=== PATIENT | male | born 2000 | race Caucasian/White ===

== ENCOUNTER 2022-11-13 19:02 | Emergency (ER) | payer BC ==
[~2022-11-13] VITALS: Ht 177.8 cm; Wt 77.1 kg
[2022-11-13 19:30] VITALS: BP_SYST 146
--- NOTE | 2022-11-13 19:40 | NUR ---
BS IN TRIAGE 544. DR. GARNICA WITH PATIENT IN TRIAGE FOR MSE.
--- NOTE | 2022-11-13 19:47 | NUR ---
Patient to ER bed 01 to gown for evaluation. Side rails up. Report given to MARIO GALVEZ.
--- NOTE | 2022-11-13 19:58 | NUR ---
Patient complaining of high glucose was diagnosed with Diabetes yesterday at [facility]. Was prescribed Metformin 500 mg BID. Patient reports that he took morning medication and took glucose at 1900 with reading showing in the high 500s. Denies pain, chest pain, shortness of breath. Patient is accompanied by Girlfried. AOX4 ambulatory from home.
[2022-11-13] MEDS ORDERED: NACL 0.9% 2,000 ML IV ONE (20:00)
--- NOTE | 2022-11-13 20:06 | NUR ---
# 20 gauge angiocath placed to rac. Use of asceptic technique. Opsite placed over site. Blood return noted. Blood for lab drawn from site. Flushed with 10 cc of normal saline. No evidence of infiltration noted. Patient tolerated well.
[2022-11-13 20:20] LABS: BASOPHILS # (AUTO) 0.1 K/uL (0.0-0.2); BASOPHILS % (AUTO) 0.9 % (0.0-2.0); EOSINOPHILS # (AUTO) 0.1 K/uL (0.0-0.4); EOSINOPHILS % (AUTO) 1.9 % (0.0-4.0); HEMATOCRIT 45.5 % (36-54); HEMOGLOBIN 15.7 g/dL (14.0-18.0); LYMPHOCYTES # (AUTO) 1.9 K/uL (1.0-5.5); LYMPHOCYTES % (AUTO) 31.5 % (20.5-51.5); MEAN CORPUSCULAR HEMOGLOBIN 31 pg (27-31); MEAN CORPUSCULAR HGB CONC 35 % (32-36); MEAN CORPUSCULAR VOLUME 90 fL (79.0-98.0); MONOCYTES # (AUTO) 0.4 K/uL (0.0-1.0); MONOCYTES % (AUTO) 6.7 % (1.7-9.3); NEUTROPHILS # (AUTO) 3.6 K/uL (1.8-7.7); PLATELET COUNT (AUTO) 156 K/uL (130-430); RED BLOOD CELL COUNT(AUTO) 5.04 MIL/uL (4.2-6.2); RED CELL DISTRIBUTION WIDTH 12.2 % (9.0-15.0); WHITE BLOOD COUNT (AUTO) 6.1 K/uL (4.8-10.8)
[2022-11-13 20:32] LABS: BILIRUBIN,URINE NEGATIVE (NEGATIVE); BLOOD, URINE NEGATIVE (NEGATIVE); CLARITY/URINE CLEAR (CLEAR); GLUCOSE,URINE 3+ (NEGATIVE); KETONES,URINE 3+ (NEGATIVE); LEUKOCYTE ESTERASE ,URINE NEGATIVE (NEGATIVE); NITRITE, URINE NEGATIVE (NEGATIVE); PROTEIN URINE NEGATIVE (NEGATIVE); UROBILINOGEN,URINE 0.2 (0.2-1.0)
[2022-11-13 20:39] LABS: ALBUMIN 3.9 g/dL (3.4-4.8); CREATININE 1.11 mg/dL (0.55-1.30); TOTAL BILIRUBIN 0.4 mg/dL (0.0-1.0)
[2022-11-13 21:11] LABS: COLOR,URINE STRAW (YELLOW)
[2022-11-13] MEDS ORDERED: INSULIN REGULAR, HUMAN 10 UNITS/0.1 ML, 3 ML VIAL SUBCUT ONE (21:30)
[2022-11-13 22:01] LABS: BACTERIA,URINE FEW /HPF (None Seen); MUCUS,URINE None Seen /LPF (None Seen); RBC,URINE NONE SEEN /HPF (0-3); WBC,URINE 0-3 /HPF (0-3)
--- NOTE | 2022-11-13 22:20 | NUR ---
PT IS AA&OX4. AFEBRILE. NAD. DENIES PAIN. AFEBRILE. W/ FAMILY AT BEDSIDE. SAFE & HAZARD FREE ENVIRONMENT PROVIDED.
--- NOTE | 2022-11-13 22:29 | NUR ---
LATEST BLOOD GLUCOSE =308MG/DL
[2022-11-13] MEDS ORDERED: METF-381 PO (23:21)
[2022-11-13 23:32] VITALS: BP_SYST 153
--- NOTE | 2022-11-13 23:34 | NUR ---
Patient given written and verbal discharge instructions and verbalizes understanding. ER MD discussed with patient the results and treatment provided. Patient in stable condition. ID arm band removed. IV catheter removed intact and dressing applied, no active bleeding. Rx of METFORMIN given. Patient educated on pain management and to follow up with PMD. Pain Scale 0/10. Opportunity for questions provided and answered. Medication side effect fact sheet provided.
== END 2022-11-13 23:32 | disposition home or self-care (01) ==
LOC: SED 19:02
DX: E11.65 Type 2 diabetes mellitus with hyperglycemia (principal); R35.89 Other polyuria; R63.1 Polydipsia; Z79.899 Other long term (current) drug therapy
CPT/HCPCS: 99283; 96360; 96361; 80053; 81000; 82962; 85025; 36415; 96372; J7030